=== PATIENT | female | born 1960 | race Two or more races ===

== ENCOUNTER 2021-08-04 14:39 | Emergency (ER) | payer OTHER ==
[~2021-08-04] VITALS: Ht 152.4 cm; Wt 61.2 kg
--- NOTE | 2021-08-04 14:47 | NUR ---
BIBRA 860 FROM HOME C/O L ANKLE PAIN AND SWELLING S/P GLF. PER EMS NO LOC. PT STATED PAIN IS 8/10 ON PAIN SCALE. PT ATTACHED TO MONITOR, VITALS ARE WITHIN NORMAL LIMTIS, NO RESPIRATORY DISTRESS NOTED. AWAITING MD WINSTON.
[2021-08-04] MEDS ORDERED: MORPHINE SULFATE INJ 4 MG/ML DISP.SYRIN ONE (15:17)
[2021-08-04] MEDS ORDERED: MORPHINE SULFATE INJ 2 MG/ML DISP.SYRIN IM ONE (15:30)
--- NOTE | 2021-08-04 15:44 | NUR ---
X RAY AT BEDSIDE
[2021-08-04] MEDS ORDERED: HYDR-4209 PO ×2 (16:16→17:17)
--- NOTE | 2021-08-04 17:29 | NUR ---
[facility] CALLED FOR TRANSPORT ETA 1844 PER JULIANN.
[2021-08-04] MEDS ORDERED: HYDROCODONE/APAP 5/325MG TABLET ONE (17:55)
[2021-08-04] MEDS ORDERED: HYDROCODONE/APAP 5/325MG TABLET PO ONE (18:00)
--- NOTE | 2021-08-04 18:09 | NUR ---
REPORT GIVEN TO TRANSPORTATION, PT GIVEN DISCHARGE INSTRUCTION AND PRESCRIPTION AND BEING TRANSPORTED BACK HOME IN STABLE CONDITION.
[2021-08-04 18:23] VITALS: BP 159/88
[2021-08-05] MEDS ORDERED: ONDA4TAB11 PO (21:40)
== END 2021-08-04 18:23 | disposition home or self-care (01) ==
LOC: ER 14:39
DX: S93.402A Sprain of unspecified ligament of left ankle, initial encounter (principal); M25.562 Pain in left knee; M25.552 Pain in left hip; I12.0 Hypertensive chronic kidney disease with stage 5 chronic kidney disease or end stage renal disease; N18.6 End stage renal disease; Z99.2 Dependence on renal dialysis; Z79.899 Other long term (current) drug therapy; W01.0XXA Fall on same level from slipping, tripping and stumbling without subsequent striking against object, initial encounter; Y93.89 Activity, other specified; Y92.89 Other specified places as the place of occurrence of the external cause; Y99.8 Other external cause status
CPT/HCPCS: 73503; 73564; 73590; 73610; 96372; 99284; J2270; 73502

== ENCOUNTER 2021-08-05 17:00 | Emergency (ER) | payer OTHER ==
[~2021-08-05] VITALS: Ht 152.4 cm; Wt 61.2 kg
[~2021-08-05 17:00] MED LIST: HYDR-4209 PO
--- NOTE | 2021-08-05 17:15 | NUR ---
BIB RA 860 FROM HOME,C/O ABDOMINAL PAIN AFTER TAKING TYLENOL FOR ANKLE PAIN. SEEN HERE YESTERDAY FOR ANKLE PAIN SECONDARY TO FALL. PLACED COMFORTABLY IN BED. PATIENT HAS LEFT AV SHUNT. WITH SWELLING OF LEFT FOOT. VITALS CHECKED.
[2021-08-05 20:18] LABS: BASOPHILS % (AUTO) 0.6 % (0.0-2.0); EOSINOPHILS % (AUTO) 5.8 % (0.0-6.0); HEMATOCRIT 36 % (33-45); HEMOGLOBIN 12.1 g/dL (11.5-14.8); LYMPHOCYTES # (AUTO) 0.5 K/uL (0.8-4.8); LYMPHOCYTES % (AUTO) 11.9 % (20.0-44.0); MEAN CORPUSCULAR HGB CONC 34 g/dl (31.0-36.0); MEAN CORPUSCULAR VOLUME 110 fL (82-100); MONOCYTES # (AUTO) 0.4 K/uL (0.1-1.30); NEUTROPHILS # (AUTO) 3.2 K/uL (1.8-8.9); NEUTROPHILS % (AUTO) 72.7 % (43.0-81.0); PLATELET COUNT (AUTO) 197 K/uL (150-450); RED BLOOD CELL COUNT(AUTO) 3.29 MIL/uL (4.0-5.2); WHITE BLOOD COUNT (AUTO) 4.4 K/uL (4.3-11.0)
[2021-08-05 20:26] LABS: CALCIUM, SERUM 8.5 mg/dL (8.5-10.1); CREATININE 5.9 mg/dL (0.6-1.3); POTASSIUM 4.6 mmol/L (3.5-5.1)
[2021-08-05 20:34] LABS: ALBUMIN 3.8 g/dL (3.4-5.0); BILIRUBIN,TOTAL 0.3 mg/dL (0.2-1.0); TOTAL PROTEIN, SERUM 8.1 g/dL (6.4-8.2)
[2021-08-05] MEDS ORDERED: MAG HYDROX/AL HYDROX/SIMETH 30 ML UDC PO ONE (21:30)
[2021-08-05] MEDS ORDERED: LIDOCAINE VISCOUS 2% UD 15 ML UDC MM ONE (21:30)
[2021-08-05 21:40] LABS: EOSINOPHILS % (MANUAL) 5 % (0-4); LYMPHOCYTES % (MANUAL) 10 % (16-48); MONOCYTES % (MANUAL) 6 % (0-11.0); NEUTROPHILS % (MANUAL) 79 (42-76)
[2021-08-05] MEDS ORDERED: ONDA4TAB11 PO (21:40)
[2021-08-05] MEDS ORDERED: MAG HYDROX/AL HYDROX/SIMETH 30 ML UDC ONE (21:41)
--- NOTE | 2021-08-05 21:42 | NUR ---
XYLOCAINE VISCOUS GIVEN BY REJI GRIDER
--- NOTE | 2021-08-05 21:59 | NUR ---
Patient discharged to home in stable condition. Written and verbal after care instructions given. Patient verbalizes understanding of instruction.
--- NOTE | 2021-08-05 22:04 | NUR ---
[facility] TRANSPORTATION ETA 1 HOUR.
--- NOTE | 2021-08-05 23:37 | NUR ---
[facility] AT BED SIDE TO BINGO USHER THE PT.
[2021-08-05 23:46] VITALS: BP 138/70
== END 2021-08-05 23:47 | disposition home or self-care (01) ==
LOC: ER 17:02
DX: R11.0 Nausea (principal); I12.0 Hypertensive chronic kidney disease with stage 5 chronic kidney disease or end stage renal disease; N18.6 End stage renal disease; Z99.2 Dependence on renal dialysis; Z79.899 Other long term (current) drug therapy
CPT/HCPCS: 36415; 80053-TC; 83690-TC; 85025-TC

== ENCOUNTER 2021-08-24 13:34 | Inpatient (IN) | payer OTHER ==
[~2021-08-24] VITALS: Ht 162.6 cm; Wt 59.2 kg
[~2021-08-24 13:34] MED LIST changes: +ONDA4TAB11 PO
--- NOTE | 2021-08-24 13:56 | NUR ---
To ER bed 8, [id number], from home, altered, last HD yesterday BS 116, aaox3, breathing even and non labored, connected to monitor, awaiting md lyon
[2021-08-24] MEDS ORDERED: IV NS 0.9% 500 ML BAG IV ONE (14:30)
[2021-08-24 14:42] LABS: BASOPHILS % (AUTO) 0.8 % (0.0-2.0); EOSINOPHILS % (AUTO) 15.5 % (0.0-6.0); HEMATOCRIT 23 % (33-45); LYMPHOCYTES # (AUTO) 0.7 K/uL (0.8-4.8); LYMPHOCYTES % (AUTO) 17.6 % (20.0-44.0); MEAN CORPUSCULAR HGB CONC 34 g/dl (31.0-36.0); MEAN CORPUSCULAR VOLUME 107 fL (82-100); MONOCYTES # (AUTO) 0.3 K/uL (0.1-1.30); MONOCYTES % (AUTO) 9.2 % (2.0-12.0); NEUTROPHILS # (AUTO) 2.1 K/uL (1.8-8.9); NEUTROPHILS % (AUTO) 56.9 % (43.0-81.0); PLATELET COUNT (AUTO) 260 K/uL (150-450); RED BLOOD CELL COUNT(AUTO) 2.18 MIL/uL (4.0-5.2); WHITE BLOOD COUNT (AUTO) 3.8 K/uL (4.3-11.0)
[2021-08-24] MEDS ORDERED: HYDR-4077 PO (14:53)
[2021-08-24] MEDS ORDERED: ATOR40TA PO (14:53)
[2021-08-24] MEDS ORDERED: PREG-57 PO (14:53)
[2021-08-24] MEDS ORDERED: FOLI0.4T6 PO (14:53)
[2021-08-24] MEDS ORDERED: NIFE-34 PO (14:53)
[2021-08-24] MEDS ORDERED: ACET-73 MT (14:53)
[2021-08-24] MEDS ORDERED: LOSA25TA27 PO (14:53)
[2021-08-24] MEDS ORDERED: CARV12.52 PO (14:53)
[2021-08-24] MEDS ORDERED: SEVE800T28 PO (14:53)
[2021-08-24] MEDS ORDERED: OXCA300T15 PO (14:53)
[2021-08-24] MEDS ORDERED: LEVO75TA7 PO (14:53)
[2021-08-24 15:09] LABS: ALANINE AMINOTRANSFERASE 8 U/L (12-78); ALBUMIN 3.3 g/dL (3.4-5.0); ALKALINE PHOSPHATASE 82 U/L (46-116); ASPARTATE AMINOTRANSFERASE 14 U/L (15-37); BILIRUBIN,DIRECT 0.1 mg/dL (0.0-0.2); BILIRUBIN,TOTAL 0.2 mg/dL (0.2-1.0); CARBON DIOXIDE 29 mmol/L (21-32); CHLORIDE 94 mmol/L (98-107); GLUCOSE 76 mg/dL (74-106); POTASSIUM 4.5 mmol/L (3.5-5.1); SODIUM SERUM 135 mmol/L (136-145); TOTAL PROTEIN, SERUM 6.9 g/dL (6.4-8.2); UREA NITROGEN, BLOOD 51 mg/dL (7-18)
[2021-08-24 15:11] LABS: CREATININE 7.7 mg/dL (0.6-1.3)
[2021-08-24] MEDS ORDERED: ONDANSETRON HCL/PF 4 MG/2 ML VIAL ONE (15:45)
[2021-08-24 15:49] LABS: EOSINOPHILS % (MANUAL) 17 % (0-4); LYMPHOCYTES % (MANUAL) 15 % (16-48); MONOCYTES % (MANUAL) 6 % (0-11.0); NEUTROPHILS % (MANUAL) 62 (42-76)
[2021-08-24] MEDS ORDERED: CEFTRIAXONE 1GM BAG (ER ONLY) 50 ML IV ONE ×2 (15:57→16:00)
[2021-08-24] MEDS ORDERED: ONDANSETRON HCL/PF 4 MG/2 ML VIAL IV ONE (16:00)
[2021-08-24] MEDS ORDERED: AZITHROMYCIN 500 MG in IV D5W 250 ML IV ONE (16:30)
--- NOTE | 2021-08-24 17:15 | NUR ---
ABALONE DIVER AT BEDSIDE FOR BLOOD DRAW
--- NOTE | 2021-08-24 17:39 | NUR ---
room [id number]
--- NOTE | 2021-08-24 18:10 | NUR ---
REPORT GIVEN TO NAEEM MENDOZA FOR STEFFANY
[2021-08-24] MEDS ORDERED: ACETAMINOPHEN ES 500 MG TABLET PO PRN (18:30)
[2021-08-24] MEDS ORDERED: PREGABALIN 25 MG CAPSULE PO PRN (18:30)
--- NOTE | 2021-08-24 18:43 | NUR ---
TRANSFERRED TO BED 309 IN STABLE CONDITION
--- NOTE | 2021-08-24 19:10 | NUR ---
ATTENDING AMBULATORY CARE OPENING NOTES: RECEIVED PATIENT IN BED, AWAKE, A/O X3-4. NO S/S OF DISTRESS NOTED. NO COMPLAIN OF PAIN. CALL LIGHT WITHIN REACH. BED ALARM ON. BED IN LOWEST AND LOCKED POSITION. WITH SITTER AT THE BEDSIDE. ASSISTED TO THE BEDSIDE COMMODE, PATIENT HAD BM. ON TELE MONITOR WITH SR 70'S. WITH O2 AT 3L/MIN NASAL CANNULA. WITH RIGHT ARM AV SHUNT NOT FUNCTIONING, SIGN ON THE BOARD NO BP,IV OR BLOOD DRAW ON THE RIGHT ARM POSTED ON THE WALL. ON TELE MONITOR WITH SR 70'S.
[2021-08-24 20:00] VITALS: BP 135/80
[2021-08-24] MEDS ORDERED: MAG HYDROX/AL HYDROX/SIMETH 30 ML UDC PO PRN (20:00)
[2021-08-24] MEDS ORDERED: ACETAMINOPHEN 325 MG TABLET PO PRN (20:00)
[2021-08-24] MEDS ORDERED: MAGNESIUM HYDROXIDE 30 ML UDC PO PRN (20:00)
[2021-08-24] MEDS ORDERED: ZOLPIDEM TARTRATE 5 MG TABLET PO PRN (20:00)
[2021-08-24] MEDS ORDERED: Z GUARD REMEDY 4 OZ OINT TP PRN (20:00)
[2021-08-24] MEDS ORDERED: ONDANSETRON HCL/PF 4 MG/2 ML VIAL IVP PRN (20:00)
[2021-08-24] MEDS: ATORVASTATIN 40 MG TABLET PO SCH (21:51)
[2021-08-24] MEDS: OXCARBAZEPINE 150 MG TABLET PO SCH (21:51)
[2021-08-25 00:27] VITALS: BP 144/86
[2021-08-25 04:46] VITALS: BP 165/84
[2021-08-25 08:00] VITALS: BP 163/102
--- NOTE | 2021-08-25 08:01 | NUR ---
RN OPENING NOTE PATIENT RECEIVED IN BED, AO X 3-4, ABLE TO RESPONDS ALL STIMULI. IN NO ACUTE DISTRESS NOTED. RESPIRATORY EVEN AND UNLABORED ON OXYGEN AT 3Ls VIA NC. SKIN IS WARM TO TOUCH, KEEP CLEAN/DRY. KEPT ELEVATED HOB FOR ENSURE AIRWAY AND ASPIRATION PRECAUTION, ALSO LOWEST POSITION OF THE BED, S/R UP X 3, BED ALARM IS ON AT ALL THE TIMES. ALL SAFETY PRECAUTION APPLIED. CALL LIGHT WITHIN REACH, WILL CONTINUE TO MONITOR.
[2021-08-25 08:15] LABS: CALCIUM, SERUM 7.7 mg/dL (8.5-10.1); MAGNESIUM 2.7 mg/dL (1.8-2.4); POTASSIUM 4.7 mmol/L (3.5-5.1)
[2021-08-25 08:23] LABS: CREATININE 8.9 mg/dL (0.6-1.3)
[2021-08-25 08:26] LABS: PHOSPHORUS 8.2 mg/dL (2.5-4.9)
[2021-08-25] MEDS: NIFEdipine XL (30MG) 30 MG TAB PO SCH (08:32)
[2021-08-25] MEDS: LOSARTAN POTASSIUM 25 MG TABLET PO SCH ×2 (08:33→16:45)
[2021-08-25] MEDS: OXCARBAZEPINE 150 MG TABLET PO SCH ×2 (08:33→16:45)
[2021-08-25] MEDS: CARVEDILOL 12.5 MG TABLET PO SCH ×2 (08:33→16:46)
[2021-08-25] MEDS: FOLIC ACID 1 MG TABLET PO SCH (08:33)
[2021-08-25] MEDS: SEVELAMER CARBONATE 800 MG TABLET PO SCH ×3 (08:34→17:36)
[2021-08-25] MEDS: LEVOTHYROXINE SODIUM 75 MCG TABLET PO SCH (08:34)
[2021-08-25] MEDS ORDERED: hydrALAZINE HCL 50 MG TABLET PO SCH (09:00)
[2021-08-25 11:59] LABS: BASOPHILS % (AUTO) 0.7 % (0.0-2.0); EOSINOPHILS % (AUTO) 7.7 % (0.0-6.0); HEMATOCRIT 22 % (33-45); HEMOGLOBIN 7.5 g/dL (11.5-14.8); LYMPHOCYTES # (AUTO) 0.7 K/uL (0.8-4.8); LYMPHOCYTES % (AUTO) 14.7 % (20.0-44.0); MEAN CORPUSCULAR HGB CONC 34 g/dl (31.0-36.0); MEAN CORPUSCULAR VOLUME 104 fL (82-100); MONOCYTES # (AUTO) 0.3 K/uL (0.1-1.30); NEUTROPHILS # (AUTO) 3.2 K/uL (1.8-8.9); NEUTROPHILS % (AUTO) 69.9 % (43.0-81.0); PLATELET COUNT (AUTO) 232 K/uL (150-450); RED BLOOD CELL COUNT(AUTO) 2.15 MIL/uL (4.0-5.2); WHITE BLOOD COUNT (AUTO) 4.5 K/uL (4.3-11.0)
[2021-08-25 16:00] VITALS: BP 134/72
[2021-08-25] MEDS: CEFTRIAXONE 1 G in IV D5W 50 ML IV SCH (16:44)
[2021-08-25] MEDS: EPOETIN ALFA-EPBX 4,000 UNIT/ML VIAL SQ SCH (16:45)
--- NOTE | 2021-08-25 18:00 | NUR ---
Spoke to Dr Hunt regarding pt HD canceled for today and do pt in am. Pt is MWF HD treatment.
--- NOTE | 2021-08-25 18:48 | NUR ---
RN CLOSING PATIENT IN BED, RESTING COMFORTABLY. IN NO ACUTE DISTRESS OBSERVED. SKIN IS WARM TO TOUCH KEEP CLEAN/DRY. RESPIRATORY EVEN AND UNLABORED ON ROOM AIR. KEPT ELEVATED HOB FOR ASPIRATION PRECAUTION AND ENSURE AIRWAY. LOWEST POSITION OF THE BED FOR SAFETY ALSO. PATIENT SCHEDULED HD TOMORROW. BED ALARM IS ON AT ALL THE TIME. ALL SAFETY PRECAUTION APPLIED. WILL ENDORSE TO OPERATIONS ASSISTANT.
--- NOTE | 2021-08-25 19:30 | NUR ---
RN OPENING NOTE PATIENT IN BED, AWAKE SITTING UP. PATIENT IS MOSTLY YAKUT SPEAKING BUT ABLE TO UNDERSTAND SAUDI ARABIAN. PATIENT CURRENTLY ON RA, TOLERATING WELL WITH 97% 02 SATURATION. NO SOB NOTED OR NOT IN ANY RESPIRATORY DISTRESS. PATIENT HAS A PERMACATH ON THE RCW FOR HD, R ARM AV SHUNT NOTED BUT NO BRUIT OR THRILL PRESENT. PATIENT COMPLAINING OF ITCHING AND HAS BEEN ITCHING SINCE ADMISSION. WILL NOTIFY MD. DANILO Mercado L WRIST 18 G SALINE LOCKED ONLY, PATENT AND INTACT. NO COMPLAINTS OF PAIN. SAFETY MEASURES IMPLEMENTED.
[2021-08-25 20:00] VITALS: BP 132/84
[2021-08-25] MEDS: ATORVASTATIN 40 MG TABLET PO SCH (21:37)
[2021-08-25] MEDS: diphenhydrAMINE HCL 50 MG/ML VIAL IV PRN (21:39)
--- NOTE | 2021-08-25 21:39 | NUR ---
RN NOTE MD ORDERED BENADRYL 25 MG IV Q8HR PRN FOR ITCHING. GIVEN TO PATIENT, WILL REASSESS MED EFFECTIVENESS AT A LATER TIME.
[2021-08-26 06:33] LABS: BASOPHILS % (AUTO) 0.6 % (0.0-2.0); EOSINOPHILS % (AUTO) 11.2 % (0.0-6.0); HEMATOCRIT 21 % (33-45); HEMOGLOBIN 7.2 g/dL (11.5-14.8); LYMPHOCYTES # (AUTO) 0.6 K/uL (0.8-4.8); LYMPHOCYTES % (AUTO) 16.9 % (20.0-44.0); MEAN CORPUSCULAR HGB CONC 35 g/dl (31.0-36.0); MEAN CORPUSCULAR VOLUME 107 fL (82-100); MONOCYTES # (AUTO) 0.3 K/uL (0.1-1.30); MONOCYTES % (AUTO) 7.4 % (2.0-12.0); NEUTROPHILS # (AUTO) 2.3 K/uL (1.8-8.9); NEUTROPHILS % (AUTO) 63.9 % (43.0-81.0); PLATELET COUNT (AUTO) 221 K/uL (150-450); WHITE BLOOD COUNT (AUTO) 3.6 K/uL (4.3-11.0)
[2021-08-26 06:34] LABS: CALCIUM, SERUM 7.4 mg/dL (8.5-10.1); POTASSIUM 4.4 mmol/L (3.5-5.1)
[2021-08-26 06:40] LABS: CREATININE 10.7 mg/dL (0.6-1.3)
[2021-08-26 07:12] LABS: RED BLOOD CELL COUNT(AUTO) 1.96 MIL/uL (4.0-5.2)
--- NOTE | 2021-08-26 07:15 | NUR ---
RN OPENING NOTE PATIENT IN BED, AWAKE SITTING UP. PATIENT IS MOSTLY SYRIAN SPEAKING BUT ABLE TO UNDERSTAND [place]. PATIENT CURRENTLY ON RA, TOLERATING WELL WITH 97% 02 SATURATION. NO SOB NOTED OR NOT IN ANY RESPIRATORY DISTRESS. PATIENT HAS A PERMACATH ON THE RCW FOR HD, R ARM AV SHUNT NOTED BUT NO BRUIT OR THRILL PRESENT. PATIENT HAS A L WRIST 18 G SALINE LOCKED ONLY, PATENT AND INTACT. NO COMPLAINTS OF PAIN. SAFETY MEASURES IN PLACE: BED LOCKED AND IN LOWEST POSITION, CALL LIGHT WITHIN REACH, SIDE RAILS UP. ENDORSED TO DAY SHIFT NURSE FOR STEFFANY. Addendum: 08/26/21 at 0717 by ALICIA VILLALOBOS RN CLOSING NOTE
--- NOTE | 2021-08-26 07:30 | NUR ---
MS MENDOZA OPENING NOTES: PATIENT IN BED, ASLEEP. PORTUGUESE SPEAKING ALERT, ORIENTED X3 AND ABLE TO VERBALIZED NEEDS. NO SOB OR CARDIAC DISTRESS NOTED, ON ROOM AIR AT THIS TIME AND TOLERATED WELL. DENIES ANY PAIN AT THIS TIME. NO IV ACCESS AT THIS TIME, SCHEDULED FOR MIDLINE INSERTION. SAFETY PRECAUTION MAINTAINED: BED LOCKED AND IN LOWEST POSITION, CALL BUTTON IN EASY REACH FOR HELP. KEPT RESTED AND COMFORTABLE. Addendum: 08/26/21 at 1520 by JONAH KC RN DISREGARD. ERROR
--- NOTE | 2021-08-26 07:30 | NUR ---
MS RN OPENING NOTES: RECEIVED PATIENT IN BED, PATIENT CUBAN SPEAKING AWAKE. ALERT, ORIENTED X3 AND ABLE TO VERBALIZED NEEDS. NO SOB OR CARDIAC DISTRESS NOTED, ON ROOM AIR. DENIES ANY PAIN AT THIS TIME. WITH RIGHT UPPER CHEST ALL PERMACATH FOR HD. WITH IV ACCESS ON LEFT WRIST G#18 SALINE LOCKED PATENT AND INTACT. SAFETY PRECAUTION MAINTAINED: BED LOCKED AND IN LOWEST POSITION, CALL BUTTON IN EASY REACH FOR HELP. KEPT RESTED AND COMFORTABLE. WILL MONITOR FOR ANY SIGNIFICANT CHANGES.
[2021-08-26] MEDS: SEVELAMER CARBONATE 800 MG TABLET PO SCH ×3 (07:39→17:09)
[2021-08-26] MEDS: LEVOTHYROXINE SODIUM 75 MCG TABLET PO SCH (07:40)
--- NOTE | 2021-08-26 08:22 | NUR ---
PATIENT FOUND R/A WITH SAT 93% NO SOB NOTED. Addendum: 08/26/21 at 0823 by LLUVIA QUACH RT Amended: Links added.
[2021-08-26 08:31] VITALS: BP 138/65
[2021-08-26] MEDS: NIFEdipine XL (30MG) 30 MG TAB PO SCH (09:00)
[2021-08-26] MEDS: OXCARBAZEPINE 150 MG TABLET PO SCH ×2 (09:00→17:09)
[2021-08-26] MEDS: FOLIC ACID 1 MG TABLET PO SCH (09:00)
[2021-08-26] MEDS: LOSARTAN POTASSIUM 25 MG TABLET PO SCH ×2 (09:00→17:09)
[2021-08-26] MEDS: CARVEDILOL 12.5 MG TABLET PO SCH ×2 (09:00→17:10)
--- NOTE | 2021-08-26 09:00 | NUR ---
RN NOTES: PATIENT CURRENTLY ON HD. MORNING MDS NOT GIVEN.
--- NOTE | 2021-08-26 12:32 | NUR ---
SS received consult for family info. SW spoke with pt. regarding pt.'s family contact information. Per pt., she lives with her Azam but stated that he does not have a cell phone nor a house phone. Pt. mentioned that ever since she got sick, her family left her. Pt. stated that her is aware that she is in hospital but does not bother to call. SW will follow-up and try to look for contact information.
--- NOTE | 2021-08-26 13:12 | NUR ---
RN NOTES: PATIENT COMPLAINING OF BEING ANXIOUS, RELAYED TO DR SIMMS, ORDERED XANAX 1MG PO BID PRN. ORDER NOTED AND CARRIED OUT.
[2021-08-26] MEDS ORDERED: ALPRAZOLAM 1 MG TABLET PO PRN (13:30)
[2021-08-26] MEDS: EPOETIN ALFA-EPBX 4,000 UNIT/ML VIAL SQ SCH (15:37)
[2021-08-26] MEDS: CEFTRIAXONE 1 G in IV D5W 50 ML IV SCH (15:47)
[2021-08-26 16:33] VITALS: BP 147/87
[2021-08-26] MEDS: diphenhydrAMINE HCL 50 MG/ML VIAL IV PRN (17:08)
--- NOTE | 2021-08-26 18:47 | NUR ---
MS RN CLOSING NOTES: PATIENT IN BED, PATIENT YI SPEAKING AWAKE. ALERT, ORIENTED X3 AND ABLE TO VERBALIZED NEEDS. NO SOB OR CARDIAC DISTRESS NOTED, ON ROOM AIR. DENIES ANY PAIN AT THIS TIME. WITH RIGHT UPPER CHEST WALL PERMACATH FOR HD. WITH IV ACCESS ON LEFT WRIST G#18 SALINE LOCKED PATENT AND INTACT. SAFETY PRECAUTION MAINTAINED: BED LOCKED AND IN LOWEST POSITION, CALL BUTTON IN EASY REACH FOR HELP. KEPT RESTED AND COMFORTABLE. WILL MONITOR FOR ANY SIGNIFICANT CHANGES. ENDORSED TO DRESS DESIGNER NURSE FOR STEFFANY.
--- NOTE | 2021-08-26 19:15 | NUR ---
MS RN NOTES RECEIVED ON BED A/O3,BREATHING REGULAR,NOT IN ANY FORM OF DISTRESS,SALINE LOCK LEFT WRIST INTACT AND PATENT.WITH RIGHT CHEST WALL PERMA CATH FOR HD ACCESS.DRESSING INTACT AND DRY.PER REPORT,SHE HAD HEMODIALYSIS TREATMENT TODAY,2LITERS TAKEN OUT.NO COMPLAINTS AT THE MOMENT,CALL LIGHT IN REACH,NEEDS ANTICIPATED.
[2021-08-26 20:00] VITALS: BP_SYST 120; BP_SYST 143; BP_DIAS 59; BP_DIAS 78
[2021-08-26] MEDS: ATORVASTATIN 40 MG TABLET PO SCH (21:59)
[2021-08-27 06:36] LABS: BASOPHILS % (AUTO) 0.7 % (0.0-2.0); EOSINOPHILS % (AUTO) 10.2 % (0.0-6.0); HEMATOCRIT 23 % (33-45); HEMOGLOBIN 8.2 g/dL (11.5-14.8); LYMPHOCYTES # (AUTO) 0.7 K/uL (0.8-4.8); LYMPHOCYTES % (AUTO) 18.4 % (20.0-44.0); MEAN CORPUSCULAR HGB CONC 35 g/dl (31.0-36.0); MEAN CORPUSCULAR VOLUME 106 fL (82-100); MONOCYTES # (AUTO) 0.3 K/uL (0.1-1.30); MONOCYTES % (AUTO) 8.2 % (2.0-12.0); NEUTROPHILS # (AUTO) 2.3 K/uL (1.8-8.9); NEUTROPHILS % (AUTO) 62.5 % (43.0-81.0); PLATELET COUNT (AUTO) 225 K/uL (150-450); WHITE BLOOD COUNT (AUTO) 3.8 K/uL (4.3-11.0)
[2021-08-27 06:41] LABS: CALCIUM, SERUM 7.7 mg/dL (8.5-10.1); CREATININE 6.8 mg/dL (0.6-1.3); POTASSIUM 4.7 mmol/L (3.5-5.1)
--- NOTE | 2021-08-27 06:44 | NUR ---
MS RN NOTES SLEEP WELL AT NIGHT,ABLE TO VERBALIZED NEEDS,NO FALL NO INJURY,CALL LIGHT IN REACH,NEEDS ATTENDED.
[2021-08-27 08:00] VITALS: BP 138/83
[2021-08-27 08:12] LABS: EOSINOPHILS % (MANUAL) 5 % (0-4); LYMPHOCYTES % (MANUAL) 12 % (16-48); MONOCYTES % (MANUAL) 7 % (0-11.0); NEUTROPHILS % (MANUAL) 76 (42-76)
[2021-08-27] MEDS: SEVELAMER CARBONATE 800 MG TABLET PO SCH ×3 (10:27→17:28)
[2021-08-27] MEDS: FOLIC ACID 1 MG TABLET PO SCH (10:28)
[2021-08-27] MEDS: CARVEDILOL 12.5 MG TABLET PO SCH ×2 (10:28→17:28)
[2021-08-27] MEDS: LEVOTHYROXINE SODIUM 75 MCG TABLET PO SCH (10:28)
[2021-08-27] MEDS: CALCIUM ACETATE 667 MG CAP/TAB PO SCH ×3 (10:28→17:27)
[2021-08-27] MEDS: OXCARBAZEPINE 150 MG TABLET PO SCH ×2 (10:29→17:28)
[2021-08-27] MEDS: LOSARTAN POTASSIUM 25 MG TABLET PO SCH ×2 (10:29→17:27)
[2021-08-27] MEDS: NIFEdipine XL (30MG) 30 MG TAB PO SCH (13:07)
[2021-08-27] MEDS ORDERED: EPOE40007 SQ (14:13)
[2021-08-27] MEDS ORDERED: AMOX-430 PO (14:13)
[2021-08-27] MEDS: EPOETIN ALFA-EPBX 4,000 UNIT/ML VIAL SQ SCH (14:25)
[2021-08-27 16:00] VITALS: BP 129/79
[2021-08-27] MEDS: CEFTRIAXONE 1 G in IV D5W 50 ML IV SCH (16:37)
--- NOTE | 2021-08-27 17:00 | NUR ---
RECEIVED PT. ALERT AND ORIENTED X3-4.UNEVENTFUL DAY,BUT TEARY EYED WHEN TALKING ABOUT FAMILY.PLANS FOR DISCHARGE TODAY.CASE MGMT, ARRANGED FOR PT. TO HAVE EPO 3X A WEEK WITH DIALYSIS AND CALLED DIALYSIS UNIT TO ARRANGE.
--- NOTE | 2021-08-27 19:49 | NUR ---
D/C PACKET PREPARED BY REJI CARRIZALES AND PATIENT SIGNED THE D/C INSTRUCTIONS AND GIVEN TO THE PATIENT. IV REMOVED BY REJI CARRIZALES. WAITING FOR THE AMBULANCE.
[2021-08-27 19:51] VITALS: BP 135/81
[2021-08-27 20:00] VITALS: BP 135/81
--- NOTE | 2021-08-27 22:27 | NUR ---
CALLED [facility] RE: NOBODY CAN FILM CLEANER THE PATIENT TONIGHT PER CHARGE NURSE YONATHAN. WILL PAGE DR COLON.
[2021-08-27] MEDS: ATORVASTATIN 40 MG TABLET PO SCH (23:30)
--- NOTE | 2021-08-27 23:46 | NUR ---
RECEIVED A CALL FROM C D STRIPPER MARCO A STATES THAT PATIENT WILL BE DIALIZED TOMORROW AT 0500, INFORMED PATIENT.
[2021-08-28 06:04] LABS: CALCIUM, SERUM 7.7 mg/dL (8.5-10.1); POTASSIUM 4.7 mmol/L (3.5-5.1)
[2021-08-28 06:13] LABS: CREATININE 8.7 mg/dL (0.6-1.3)
--- NOTE | 2021-08-28 06:14 | NUR ---
CALLED [facility] RE: CREATININE=8.7, AND WILL PAGE DR COLON. WILL ENDORSE TO THE NEXT SHIFT RN.
[2021-08-28] MEDS: diphenhydrAMINE HCL 50 MG/ML VIAL IV PRN (06:18)
[2021-08-28 06:38] LABS: BASOPHILS % (AUTO) 0.6 % (0.0-2.0); HEMATOCRIT 22 % (33-45); HEMOGLOBIN 8.2 g/dL (11.5-14.8); LYMPHOCYTES # (AUTO) 0.8 K/uL (0.8-4.8); LYMPHOCYTES % (AUTO) 18.9 % (20.0-44.0); MEAN CORPUSCULAR HGB CONC 37 g/dl (31.0-36.0); MEAN CORPUSCULAR VOLUME 109 fL (82-100); MONOCYTES # (AUTO) 0.3 K/uL (0.1-1.30); MONOCYTES % (AUTO) 8.5 % (2.0-12.0); NEUTROPHILS # (AUTO) 2.5 K/uL (1.8-8.9); PLATELET COUNT (AUTO) 206 K/uL (150-450); RED BLOOD CELL COUNT(AUTO) 2.05 MIL/uL (4.0-5.2)
--- NOTE | 2021-08-28 07:24 | NUR ---
MS RN OPENING NOTE RECEIVED PT AWAKE IN BED CURRENTLY WITH ONGOING DIALYSIS WITH DIALYSIS NURSE AT BEDSIDE. DIALYSIS SITE ON R CHEST WALL PERMA CATH INTACT. A/O X4, ABLE TO MAKE NEEDS KNOWN. ON RA, TOLERATING WELL. BREATHING UNLABORED WITH NO SIGN OF RESPIRATORY DISTRESS. SAFETY MEASURES IN PLACE: BED IN LOWEST AND LOCKED POSITION, SIDE RAILS UP X2, AND CALL LIGHT WITHIN REACH. WILL CONTINUE TO MONITOR PT.
--- NOTE | 2021-08-28 08:00 | NUR ---
RN NOTE PT'S HEMODIALYSIS COMPLETED WITH 1.5 LITERS OUT. R CHEST PERMA CATH INTACT WITH DRESSING IN PLACE WITH NO ACTIVE BLEEDING NOTED.
[2021-08-28] MEDS: FOLIC ACID 1 MG TABLET PO SCH (08:03)
[2021-08-28] MEDS: LEVOTHYROXINE SODIUM 75 MCG TABLET PO SCH (08:03)
[2021-08-28] MEDS: CALCIUM ACETATE 667 MG CAP/TAB PO SCH (08:03)
[2021-08-28] MEDS: OXCARBAZEPINE 150 MG TABLET PO SCH (08:03)
[2021-08-28] MEDS: SEVELAMER CARBONATE 800 MG TABLET PO SCH (08:03)
[2021-08-28] MEDS: LOSARTAN POTASSIUM 25 MG TABLET PO SCH (08:04)
[2021-08-28] MEDS: CARVEDILOL 12.5 MG TABLET PO SCH (08:04)
[2021-08-28] MEDS: NIFEdipine XL (30MG) 30 MG TAB PO SCH (08:04)
--- NOTE | 2021-08-28 08:04 | NUR ---
RN NOTE ALL BP MEDS DUE AT 0900 HELD. PT IS CURRENTLY ON DIALYSIS AT THIS TIME.
--- NOTE | 2021-08-28 08:30 | NUR ---
RN NOTE PT DISCHARGED TO HOME IN STABLE CONDITION. PT ALERT AND ORIENTED X4, ABLE TO MAKE NEEDS KNOWN. ON RA, TOLERATING WELL WITH SPO2 AT 96%. BREATHING EVEN AND UNLABORED. NOT IN ANY SIGN OF RESPIRATORY DISTRESS. ALL DISCHARGED INSTRUCTIONS AND HEALTH TEACHINGS DOCUMENTS GIVEN TO PATIENT. PT HAS NO IV ACCESS WHEN RECEIVED PT IN AM DURING CHANGE OF SHIFT.PT LEFT THE UNIT AT 0815 VIA GURNEY PICKED UP BY 2 STUDENT ADVISOR. MD AND CHARGED NURSE AWARE OF DISCHARGE. 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 PER DR. WORTHY HE WILL COMMUNICATE WITH THE DIALYS[facility] AT [facility] IN REGARDS TO ADJUSTING THE DIALYSIS FOR THE PT. Addendum: 08/28/21 at 1134 by MIRLANDE LOVE RN ADDENDUM DR. APODACA AWARE OF DR. WORTHY RESPONSE ABOUT THE SODIUM LEVEL OF 123.
== END 2021-08-28 08:15 | disposition home or self-care (01) | DRG 139 ==
LOC: ER 13:37 → TELE 17:54 → MED 08-25 13:42
PROVIDERS: ADMIT Nurse Practitioner Acute Care; ATTEND Internal Medicine
PROC: 5A1D70Z Performance of Urinary Filtration, Intermittent, Less than 6 Hours Per Day (ICD-10-PCS; principal; 2021-08-25)
DX: J15.9 Unspecified bacterial pneumonia (principal); G92.8 Other toxic encephalopathy; E87.2 Acidosis; D63.1 Anemia in chronic kidney disease; I12.0 Hypertensive chronic kidney disease with stage 5 chronic kidney disease or end stage renal disease; I95.9 Hypotension, unspecified; E83.39 Other disorders of phosphorus metabolism; E87.1 Hypo-osmolality and hyponatremia; N18.6 End stage renal disease; Z20.822 Contact with and (suspected) exposure to COVID-19; Z99.2 Dependence on renal dialysis; E03.9 Hypothyroidism, unspecified; Z79.890 Hormone replacement therapy; Z79.899 Other long term (current) drug therapy; E78.5 Hyperlipidemia, unspecified
CPT/HCPCS: 36415; 70450-TC; 71045-TC; 80048-TC; 80076-TC; 83605-TC; 83735-TC; 84100-TC; 84484-TC; 85025-TC; 85730-TC; 86706; 87040-TC; 87081-TC; 87340; 90935-TC; 94799-TC; 97116-TC; C9803; G0378; J0456; J0696; J0885; J1200; J2405; J7030; J7040; J7050; J7060